=== PATIENT | male | born 1945 | race Caucasian/White ===

== ENCOUNTER 2017-09-13 18:51 | Emergency (ER) | payer OTHER, BC ==
[~2017-09-13] VITALS: Ht 182.9 cm; Wt 79.4 kg
[2017-09-13 19:05] VITALS: Ht 182.9 cm; Wt 79.4 kg
[2017-09-13 19:56] LABS: BASOPHIL % 0.5 % (0-2); PLATELET COUNT 211 x10^3mcL (130-400); RED CELL DISTRIBUTION WIDTH 14.4 % (11.5-14.5)
[2017-09-13 19:58] LABS: CALCIUM 9.2 mg/dL (8.5-10.1); CARBON DIOXIDE 28.9 mmol/L (21-32); CHLORIDE SERUM 107 mmol/L (98-107); CREATININE SERUM 1.1 mg/dL (0.7-1.3); GLUCOSE SERUM 106 mg/dL (74-106); POTASSIUM SERUM 4.6 mmol/L (3.5-5.1); SODIUM SERUM 144 mmol/L (136-145)
[2017-09-13 20:05] LABS: ALKALINE PHOSPHATASE 70 U/L (46-116); ALT/SGPT 65 U/L (16-63); AST/SGOT 47 U/L (15-37); BILIRUBIN TOTAL 0.51 mg/dL (0.20-1.00); TOTAL PROTEIN, SERUM 7.3 g/dL (6.4-8.2)
[2017-09-13 23:06] VITALS: BP 146/92
== END 2017-09-13 23:06 | disposition home or self-care (01) ==
LOC: ED 18:51
PROVIDERS: Emergency Medicine
DX: S22.20XA Unspecified fracture of sternum, initial encounter for closed fracture (principal); E78.00 Pure hypercholesterolemia, unspecified; S63.601A Unspecified sprain of right thumb, initial encounter; V43.62XA Car passenger injured in collision with other type car in traffic accident, initial encounter; Y93.89 Activity, other specified; Y92.89 Other specified places as the place of occurrence of the external cause; Y99.8 Other external cause status
CPT/HCPCS: J1885; Q9967